=== PATIENT | female | born 1975 | race African-American/Black ===

== ENCOUNTER 2024-01-30 14:40 | Inpatient (IN) | payer MEDICAID ==
[~2024-01-30] VITALS: Ht 162.6 cm; Wt 168.8 kg
[~2024-01-30 14:40] MED LIST: INSUINJ37 SC; SEMA2INJ3 SC
--- NOTE | 2024-01-30 15:27 | ED.PDOC ---
SOB-HPI HPI Comments 48-year-old female presents with a chief complaint of SOB, fatigue, and cough. Patient states that she feels "miserable". Patient mentions that she has known sick contacts at home with similar symptoms. Patient was sating at 87% on room air and had to be placed on 2L via NC and is now sating at 92%. Patient does not normally use supplemental oxygen. Patient was febrile at home she states, but is afebrile in triage. No other symptoms or modifying factors present at this time. Chief Complaint: Shortness of Breath Time Seen by MD: 15:00 Primary Care Provider: MALACHI Reviewed notes: Medications, Allergies Information Source: Patient Mode of Arrival: Ambulatory Severity: Moderate Timing: Days Duration: Since onset Context: At Rest PE Risk Factors: None Prehospital treatment: None Modifying Factors: Nothing Associated Signs and Symptoms: Cough, Nasal Congestion If cough with SOB: Non-Productive Past Medical History PAST MEDICAL HISTORY: High Lipids, HTN Surgical History: Denies all surgeries BIOLOGICAL AIDE History: No Pertinent BIOLOGICAL AIDE History Family History Family History: Unknown Social History Smoker: Non-Smoker Alcohol: Denies ETOH Use Drugs: Denies Drug Use Lives In: Home Constitutional: reports: fatigue; denies: chills, diaphoresis, fever, malaise, sweats, weakness, others EENTM: denies: blurred vision, double vision, ear bleeding, ear discharge, ear drainage, ear pain, ear ringing, eye pain, eye redness, hearing loss, mouth pain, mouth swelling, nasal discharge, nose bleeding, nose congestion, nose pain, photophobia, tearing, throat pain, throat swelling, voice changes, others Respiratory: reports: cough, shortness of breath; denies: hemoptysis, orthopnea, SOB at rest, SOB with excertion, stridor, wheezing, others Cardiovascular: denies: chest pain, dizzy spells, diaphoresis, Dyspnea on exertion, edema, irregular heart beat, left arm pain, lightheadedness, palpitations, PND, syncope, others Gastrointestinal: denies: abdomen distended, abdominal pain, blood streaked bowels, constipated, diarrhea, dysphagia, difficulty swallowing, hematemesis, melena, nausea, poor appetite, poor fluid intake, rectal bleeding, rectal pain, vomiting, others Genitourinary: denies: abnormal vagina bleeding, burning, dyspareunia, dysuria, flank pain, frequency, hematuria, incontinence, pain, , vagina discharge, urgency, others Neurological: denies: dizziness, fainting, headache, left sided numbness, left sided weakness, numbness, paresthesia, pre-existing deficit, right sided numbness, right sided weakness, seizure, speech problems, tingling, tremors, weakness, others Musculoskeletal: denies: back pain, gout, joint pain, joint swelling, muscle pain, muscle stiffness, neck pain, others Integumetry: denies: bruises, change in color, change in hair/nails, dryness, laceration, lesions, lumps, rash, wounds, others Allergic/Immunocompromised: denies: Difficulty Healing, Frequent Infections, Hives, Itching, others Hematologic/Lymphatic: denies: anemia, blood clots, easy bleeding, easy bruising, swollen glands, others Endocrine: denies: excessive hunger, excessive sweating, excessive thirst, excessive urination, flushing, intolerance to cold, intolerance to heat, unexplained weight gain, unexplained weight loss, others Psychiatric: denies: anxiety, bipolar disorder, depression, hopeless, panic disorder, schizophrenia, sleepless, suicidal, others All Other Systems: Reviewed and Negative Physical Exam General Appearance: No Apparent Distress, Normal HEENT: Normal ENT Inspection, Pharynx Normal, TMs Normal Neck: Full Range of Motion, Non-Tender, Normal, Normal Inspection Respiratory: Chest Non-Tender, Lungs Clear, No Accessory Muscle Use, No Respiratory Distress, Normal Breath Sounds Cardiovascular: No Edema, No JVD, No Murmur, No Gallop, Normal Peripheral Pulses, Regular Rate/Rhythm Breast Exam: Deferred Gastrointestinal: No Organomegaly, Non Tender, No Pulsatile Mass, Normal Bowel Sounds, Soft Genitalia: Deferred Pelvic: Deferred Rectal: Deferred Extremities: No calf tenderness, Normal capillary refill, Normal inspection, Normal range of motion, Non-tender, No pedal edema Musculoskeletal : Apperance: Normal Neurologic: Alert, natural resource economist II-XII nml as Tested, No Motor Deficits, Normal Affect, Normal Mood, No Sensory Deficits Cerebellar Function: Normal Reflexes: Normal Skin: Dry, Normal Color, Warm Lymphatic: No Adenopathy Was a procedure done? Was a procedure done?: No Differential Dx Differential Diagnosis: Asthma, Cardiogenic Shock, CHF, COPD, Hypertension, Hyperventilation, Myocardial infarction, Pneumonia, Sinusitis, Pharyngitis X-Ray, Labs, Meds, VS Vital Signs Date Time Temp Pulse Resp B/P (MAP) Pulse Ox O2 Delivery O2 Flow Rate FiO2 01/30/24 15:45 24 94 Nasal Cannula* 4 36 01/30/24 15:14 136 19 01/30/24 15:14 100.1 136 19 125/64 (84) 93 100.1 01/30/24 14:56 139 01/30/24 14:56 97.9 142 22 132/60 (84) 93 Lab Test 01/30/24 15:50 Range/Units White Blood Count 23.5 H 4.4-10.8 10^3/uL Red Blood Count 4.84 4.0-5.20 10^6/uL Hemoglobin 14.7 12.2-16.2 g/dL Hematocrit 43.9 36.0-46.0 % Mean Corpuscular Volume 90.7 80.0-100.0 fL Mean Corpuscular Hemoglobin 30.3 28.0-32.0 pg Mean Corpuscular Hemoglobin Concent 33.4 32.0-36.0 g/dL Red Cell Distribution Width 14.3 11.8-14.3 % Platelet Count 248 140-450 10^3/uL Mean Platelet Volume 9.2 6.9-10.8 fL Neutrophils (%) (Auto) 86.5 H 37.0-80.0 % Lymphocytes (%) (Auto) 7.5 L 10.0-50.0 % Monocytes (%) (Auto) 5.7 0.0-12.0 % Eosinophils (%) (Auto) 0.0 0.0-7.0 % Basophils (%) (Auto) 0.3 0.0-2.0 % Neutrophils # (Auto) 20.3 H 1.6-8.6 10 ^3/uL Lymphocytes # (Auto) 1.8 0.4-5.4 10 ^3/uL Monocytes # (Auto) 1.3 0-1.3 10 ^3/uL Eosinophils # (Auto) 0 0-0.8 10 ^3/uL Basophils # (Auto) 0.1 0-0.2 10 ^3/uL Nucleated Red Blood Cells 0.1 % Sodium Level 135 L 136-145 mmol/L Potassium Level 3.5 3.5-5.1 mmol/L Chloride Level 103 98-107 mmol/L Carbon Dioxide Level 22 20-31 mmol/L Anion Gap 10 5-15 Blood Urea Nitrogen 8 L 9-23 mg/dL Creatinine 0.97 0.550-1.02 mg/dL Glomerular Filtration Rate Calc 73 >90 mL/min BUN/Creatinine Ratio 8.2 L 10.0-20.0 Serum Glucose 359 H 74-106 mg/dL Lactic Acid Level 2.6 *H 0.4-2.0 mmol/L Calcium Level 9.8 8.7-10.4 mg/dL Troponin I High Sensitivity 8 </=34 ng/L Current Medications Medications (Trade) Dose Ordered Sig/Anneliese Route Start Time Stop Time Status Last Admin Sodium Chloride 1,000 ml @ 1,000 mls/hr Q1H ONCE IV 01/30/24 15:15 01/30/24 16:14 DC 01/30/24 16:42 Ondansetron HCl (Zofran) 4 mg ONCE ONCE IV 01/30/24 15:15 01/30/24 15:16 DC 01/30/24 16:45 Albuterol (Ventolin Medneb) 5 mg ONCE ONCE NEB 01/30/24 15:15 01/30/24 15:16 DC 01/30/24 15:44 Ipratropium [place] (Atrovent Medneb) 0.5 mg ONCE ONCE NEB 01/30/24 15:15 01/30/24 15:16 DC 01/30/24 15:45 Acetaminophen (Tylenol Tablet) 650 mg ONCE ONCE PO 01/30/24 15:15 01/30/24 15:16 DC 01/30/24 16:45 Time of 1ST Reevaluation: 15:30 Reevaluation 1ST: Unchanged Patient Education/Counseling: Diagnosis, Treatment, Prognosis Family Education/Counseling: No Family Present Departure 1 Departure Time of Disposition: 17:12 (Patient presented acutely ill concern for sepsis secondary to pneumonia. Did not do the full fluid bolus since patient appears clinically volume overloaded. Patient has a pneumonia on x-ray that I ind ependently reviewed. Patient's labs are concerning for infection. Empirically covering patient with antibiotics and we will admit patient for further workup given patient's new oxygen requirement) Impression: Primary Impression: Acute hypoxic respiratory failure Additional Impressions: Pneumonia Qualified Codes: J18.9 - Pneumonia, unspecified organism Sepsis Qualified Codes: A41.9 - Sepsis, unspecified organism; R65.20 - Severe sepsis without septic shock; J96.01 - Acute respiratory failure with hypoxia Disposition: 09 ADMITTED INPATIENT Admit to: Med Surg Condition: Serious Critical Care Note Critical Care Time?: Yes Critical care comment: Acute hypoxic respiratory failure, possible sepsis Authorized and Performed by: Ashley Batista MD Total critical care time: Approximately 38 minutes Due to a high probability of clinically significant, life threatening deterioration, the patient required my highest level of preparedness to intervene emergently and I personally spent this critical care time directly and personally managing the patient. This critical care time included obtaining a history; examining the patient; pulse oximetry; ordering and review of studies; arranging urgent treatment with development of a management plan; evaluation of patient's response to treatment; frequent reassessment; and, discussions with other providers. This critical care time was performed to assess and manage the high probability of imminent, life-threatening deterioration that could result in multi-organ failure. It was exclusive of separately billable procedures and treating other patients and teaching time. Please see my other sections and the rest of the note for further information on patient assessment and treatment. Stability Stability form required: No Heart Score Heart Score: Heart Score Response (Comments) Value History N/A 0 EKG N/A 0 Age N/A 0 Risk Factors N/A 0 Troponin N/A 0 Total 0 I personally scribed for ASHLEY BATISTA MD ([email or web address]) on 01/30/24 at 15:27. Electronically submitted by Stew Snyder ([email or web address]). ASHLEY BATISTA MD Jan 30, 2024 15:27
[2024-01-30] MEDS: ALBUTEROL SULF 2.5 MG/0.5ML(0.5%) NEB SOLN NEB ONE (15:44)
[2024-01-30] MEDS: IPRATROPIUM BROM 0.5 MG/2.5ML INH SOL NEB ONE (15:45)
--- NOTE | 2024-01-30 15:48 | DVH ---
CHEST RADIOGRAPH Indication: sob Technique: Single frontal view of the chest was obtained Comparison: None FINDINGS: Lines and Tubes: None Lungs: Diffuse interstitial prominence with obscuration of the left hemidiaphragm. No pneumothorax. Cardiomediastinal contours: Mild cardiomegaly Bones: No acute osseous abnormality. IMPRESSION: Mild cardiomegaly with findings suggestive of congestive heart failure. Obscuration of the left hemidiaphragm which may be from overlying cardiac silhouette with underlying effusion / atelectasis / pneumonia not excluded.
[2024-01-30 16:07] LABS: Basophils # (auto) 0.1 10 ^3/uL (0-0.2); Basophils % (auto) 0.3 % (0.0-2.0); Eosinophils # (auto) 0 10 ^3/uL (0-0.8); Hematocrit 43.9 % (36.0-46.0); Hemoglobin 14.7 g/dL (12.2-16.2); Lymphocytes # (auto) 1.8 10 ^3/uL (0.4-5.4); Lymphocytes % (auto) 7.5 % (10.0-50.0); Mean Corpuscular Hemoglobin 30.3 pg (28.0-32.0); Mean Corpuscular Hgb Conc. 33.4 g/dL (32.0-36.0); Mean Corpuscular Volume 90.7 fL (80.0-100.0); Monocytes # (auto) 1.3 10 ^3/uL (0-1.3); Monocytes % (auto) 5.7 % (0.0-12.0); Neutrophils # (auto) 20.3 10 ^3/uL (1.6-8.6); Neutrophils % (auto) 86.5 % (37.0-80.0); Nucleated Red Blood Cells % 0.1 %; Platelet Count (auto) 248 10^3/uL (140-450); Red Blood Cells 4.84 10^6/uL (4.0-5.20); Red Cell Distribution Width 14.3 % (11.8-14.3); White Blood Cell 23.5 10^3/uL (4.4-10.8)
[2024-01-30 16:13] LABS: Chloride 103 mmol/L (98-107); Potassium 3.5 mmol/L (3.5-5.1); Sodium 135 mmol/L (136-145)
[2024-01-30 16:14] LABS: Anion Gap 10 (5-15); Carbon Dioxide 22 mmol/L (20-31)
[2024-01-30 16:15] LABS: Calcium 9.8 mg/dL (8.7-10.4)
[2024-01-30 16:19] LABS: BUN/Creatinine Ratio 8.2 (10.0-20.0); Blood Urea Nitrogen 8 mg/dL (9-23); Glucose 359 mg/dL (74-106)
[2024-01-30 16:26] LABS: Lactic Acid w/Reflex 2.6 mmol/L (0.4-2.0)
[2024-01-30 16:40] VITALS: PULSE 134; RESP 19; O2SAT 94
[2024-01-30] MEDS: SODIUM CHLORIDE 0.9% 1,000 ML IV ONE (16:42)
[2024-01-30] MEDS: ACETAMINOPHEN 325 MG TAB PO ONE (16:45)
[2024-01-30] MEDS: ONDANSETRON HCL 4 MG/2 ML VIAL IV ONE (16:45)
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
--- NOTE | 2024-01-30 18:31 | ECG ---
[facility] Test Date: 2024-01-30 Test Time: 14:56:05 Pat Name: VAL AGUILAR Department: ER Room: 0246T Gender: F Counter Attendant: CAROLIN : 1975 Requested By: ASHLEY NICK Order Number: [id number] Reading MD: Constantin Golden Measurements Intervals [place] Rate: 139 P: 59 ND: 124 QRS: -10 QRSD: 107 T: -39 QT: 306 QTc: 466 Interpretive Statements Sinus tachycardia Consider anterior infarct Borderline T abnormalities, inferior leads Baseline wander in lead(s) III,aVF Electronically Signed On 01-31-2024 14:17:28 PST by Constantin Golden Please click the below link to view image of tracing.
[2024-01-30] MEDS ORDERED: DOCUSATE SOD 100 MG CAP PO PRN (18:45)
[2024-01-30] MEDS ORDERED: HYDROcodone-ACET 5/325MG TAB PO PRN (18:45)
[2024-01-30] MEDS ORDERED: DEXTROSE (50%) 50ML SYRG IV PRN (18:45)
[2024-01-30] MEDS ORDERED: VANCOMYCIN PER PHARMACY 0 MG IV SCH (18:45)
[2024-01-30] MEDS ORDERED: MORPHINE SULFATE INJ 2 MG/ml SYRG IV PRN (18:45)
[2024-01-30] MEDS ORDERED: ONDANSETRON HCL 4 MG/2 ML VIAL IV PRN (18:45)
[2024-01-30] MEDS ORDERED: ACETAMINOPHEN 500 MG TAB PO PRN (19:00)
[2024-01-30] MEDS ORDERED: CHOL20002 PO (19:38)
[2024-01-30] MEDS ORDERED: ATOR20TA50 PO (19:38)
[2024-01-30] MEDS: ACCU-CHEK COMFORT CURVE STRIP VI SCH (21:14)
[2024-01-30] MEDS: methylPREDNISolone SOD SUCC 40 MG/ML VL IV ONE (21:14)
[2024-01-30] MEDS: AZITHROMYCIN 250 MG TAB PO ONE (21:14)
[2024-01-30] MEDS: InsuLIN REG 1unit/0.01ml Soln (100units/ml) SC SCH (21:15)
[2024-01-30] MEDS: VANCOMYCIN 1GM/200ML PREMIX 200 ML IV ONE (21:16)
--- NOTE | 2024-01-30 21:27 | DVH ---
Exam: CT CT AB PEL WO CON-NO ORAL OR IV History: abdominal pain Comparison Study: None available at time of dictation. TECHNIQUE: Multidetector CT of the abdomen and pelvis without contrast. Axial, coronal and sagittal m ultiplanar reformats were obtained from the axial data set by the technologist. Radiation Dose Information: CT Dose: CTDI volume is 25.34 mGy. Dose-length product is 2825.2 mGy*cm FINDINGS: Left lower lobe opacification. Minimal right basilar opacification with right basilar pleural thicken ing. Mild cardiomegaly. Mild hepatomegaly. Otherwise, liver, spleen, gallbladder, pancreas and adrenal glands unremarkable. Kidneys, ureters and urinary bladder unremarkable. Intrauterine device is noted in place. Stomach is unremarkable. Small bowel loops unremarkable. Appendix is unremarkable. Mild rectal wall thickening which is most likely due to inadequate distention. Otherwise, large bowel is unremarkable . No evidence of intraperitoneal free air or free fluid. No evidence of aortic aneurysm. No significant lymphadenopathy. The soft tissues unremarkable. No destructive osseous lesions are noted. Motion artifact limits evalu ation for left fractures. IMPRESSION: Left lower lobe pneumonia with right basilar atelectasis and pleural thickening. Mild hepatomegaly. Mild rectal wall thickening which is most likely due to inadequate distention with proctitis not excl uded.
[2024-01-31] VITALS (8 sets, daily range): BP systolic 95–122; BP diastolic 40–65; PULSE 96–116; RESP 16–28; TEMP 97.3–100.2; O2SAT 91–94
[2024-01-31] MEDS: VANCOMYCIN 1GM/200ML PREMIX 200 ML IV ONE (00:30)
[2024-01-31] MEDS: CEFEPIME 1GM/ 50ML 50 ML IV SCH ×2 (01:00→12:01)
[2024-01-31] MEDS ORDERED: METF-370 PO (05:40)
[2024-01-31 07:02] LABS: Basophils # (auto) 0 10 ^3/uL (0-0.2); Basophils % (auto) 0.1 % (0.0-2.0); Eosinophils # (auto) 0 10 ^3/uL (0-0.8); Hematocrit 41.8 % (36.0-46.0); Hemoglobin 13.9 g/dL (12.2-16.2); Lymphocytes # (auto) 1.6 10 ^3/uL (0.4-5.4); Lymphocytes % (auto) 7.3 % (10.0-50.0); Mean Corpuscular Hemoglobin 30.5 pg (28.0-32.0); Mean Corpuscular Hgb Conc. 33.3 g/dL (32.0-36.0); Mean Corpuscular Volume 91.7 fL (80.0-100.0); Monocytes # (auto) 0.8 10 ^3/uL (0-1.3); Monocytes % (auto) 3.7 % (0.0-12.0); Neutrophils # (auto) 19.2 10 ^3/uL (1.6-8.6); Neutrophils % (auto) 88.9 % (37.0-80.0); Nucleated Red Blood Cells % 0.1 %; Platelet Count (auto) 263 10^3/uL (140-450); Red Blood Cells 4.56 10^6/uL (4.0-5.20); Red Cell Distribution Width 14.6 % (11.8-14.3); White Blood Cell 21.6 10^3/uL (4.4-10.8)
[2024-01-31 07:10] LABS: Alanine Aminotransferase 32 U/L (7-40); Alkaline Phosphatase 113 U/L (46-116); Anion Gap 11 (5-15); BUN/Creatinine Ratio 8.6 (10.0-20.0); Blood Urea Nitrogen 8 mg/dL (9-23); Calcium 10.1 mg/dL (8.7-10.4); Carbon Dioxide 21 mmol/L (20-31); Chloride 106 mmol/L (98-107); Glucose 356 mg/dL (74-106); Potassium 3.7 mmol/L (3.5-5.1); Sodium 138 mmol/L (136-145)
[2024-01-31 07:12] LABS: Albumin 3.7 g/dL (3.2-4.8); Aspartate Aminotransferase 13 U/L (13-40)
[2024-01-31 07:13] LABS: Bilirubin, Total 0.5 mg/dL (0.2-1.0)
[2024-01-31] MEDS ORDERED: VANCOMYCIN 1GM/200ML PREMIX 200 ML IV SCH (09:15)
[2024-01-31] MEDS: VANCOMYCIN 1GM/200ML PREMIX 200 ML IV SCH (10:48)
[2024-01-31] MEDS: MULTIPLE VITAMIN TAB PO SCH (10:48)
[2024-01-31] MEDS: methylPREDNISolone SOD SUCC 40 MG/ML VL IV SCH (10:48)
[2024-01-31] MEDS: SODIUM CHLORIDE 0.9% 1,000 ML IV SCH (11:45)
--- NOTE | 2024-01-31 12:43 | CONS ---
Pharmacy Clinical Information: CQM HF Report. Patient is currently taking Atorvastatin 20mg PO daily at home. Consider resuming during hospitalization as patient qualifies for statin therapy at this time. Consideration of high vs moderate intensity stating could be done once more information/lab are obtained such as lipid panel. ADELINA MCCLAIN PHARMACIST Jan 31, 2024 12:43
--- NOTE | 2024-01-31 13:10 | DVHPN2 ---
Subjective Continue to complain of SOB Reviewed: Care Plan, H&P, Labs, Medications, Previous Orders, Radiology Changes from previous H/P or p: No Changes Objective Vitals Vital Signs Date Time Temp Pulse Resp B/P (MAP) Pulse Ox O2 Delivery O2 Flow Rate FiO2 01/31/24 12:52 97.8 99 17 101/45 (63) 91 97.8 01/31/24 08:00 Nasal Cannula* 4 36 Intake/Output Intake and Output 01/31/24 07:00 Intake Total 240 ml Balance 240 ml Intake Oral 240 ml # Voids 2 General Appearance: Alert, Oriented X3, Cooperative, mild distress, Other (Morbidly obese) HEENT: Atraumatic Lungs: Other (Decreased air entry bilateral) Cardiovascular: Regular rate, Normal S1, Normal S2 Abdomen: Normal bowel sounds, Soft, No tenderness Extremities: No edema Neuro: Normal speech, Cranial nerves 3-12 NL Psych/Mental Status: Mental status NL, Mood NL Medications Current Medications Medications Dose Ordered Sig/Anneliese Route Start Time Stop Time Status Last Admin Dose Admin Diagnostic Test (Pha) 1 strip IQ4HR 01/30/24 20:00 01/31/24 11:45 1 STRIP Insulin Human Regular IQ4HR SC 01/30/24 20:00 01/31/24 12:27 15 UNITS Dextrose 50 ml UD PRN IV 01/30/24 18:45 Methylprednisolone Sodium Succinate 40 mg DAILY IV 01/31/24 10:00 01/31/24 10:48 40 MG Vancomycin HCl 0 ml @ 0 mls/hr UD IV 01/30/24 18:45 Sodium Chloride 1,000 ml @ 60 mls/hr [id number] IV 01/30/24 18:45 01/31/24 11:45 60 MLS/HR Acetaminophen/ Hydrocodone Bitart 1 tab Q4HP PRN PO 01/30/24 18:45 Ondansetron HCl 4 mg Q4HP PRN IV 01/30/24 18:45 Docusate Sodium 100 mg BIDPRN PRN PO 01/30/24 18:45 Multivitamins 1 tab DAILY PO 01/31/24 10:00 01/31/24 10:48 1 TAB Acetaminophen 650 mg Q6HP PRN PO 01/30/24 18:45 Morphine Sulfate 2 mg Q4HPRN PRN IV 01/30/24 18:45 Cefepime HCl 50 ml @ 12.5 mls/hr Q8H IV 01/31/24 12:00 01/31/24 12:01 12.5 MLS/HR Vancomycin HCl 200 ml @ 200 mls/hr Q8H IV 01/31/24 11:00 01/31/24 10:48 200 MLS/HR Laboratory Results Laboratory Tests 01/31/24 06:07 Chemistry Test 01/30/24 15:50 01/31/24 06:07 Calcium Level 9.8 mg/dL (8.7-10.4) 10.1 mg/dL (8.7-10.4) Albumin 3.7 g/dL (3.2-4.8) Total Protein 7.0 g/dL (5.7-8.2) LFT Test 01/31/24 06:07 Alanine Aminotransferase (ALT) 32 U/L (7-40) Alkaline Phosphatase 113 U/L (46-116) Aspartate Amino Transferase (AST) 13 U/L (13-40) Total Bilirubin 0.5 mg/dL (0.2-1.0) HgA1c, TSH Test 01/30/24 15:50 Hemoglobin A1c 11.3 % A1C (<5.7) H Labs and/or images reviewed: Labs reviewed by me, Image(s) reviewed by me Assessment/Plan Assessment/Plan A 48-year-old female patient; with multiple comorbidities; who presented to the emergency department with SOB and fever. #Acute hypoxic respiratory failure due to community-acquired pneumonia; continue oxygen therapy as needed; reviewed the available imaging studies; reviewed blood work; continue monitoring #Sepsis due to community-acquired pneumonia with lactic acidosis, leukocytosis and fever; blood cultures pending; continue IV antibiotics; continue monitoring #Lactic acidosis and leukocytosis with fever due to sepsis; management as above; continue monitoring #Metabolic syndrome with severe morbid obesity, uncontrolled diabetes mellitus, and dyslipidemia; continue insulin sliding scale with hypoglycemia protocol; started Lantus and atorvastatin; counseled on the importance of adopting healthy lifestyle with diet and exercise in order to lose weight; continue monitoring #Anxiety and depression; no suicide ideation/plans; will resume psychiatric medication upon discharge home; continue monitoring Goals of care discussed for 20 minutes; full code This medical document was created using an electronic medical record system with computerized dictation system. Although this document has been carefully reviewed, there might still be some phonetic and typographical errors. These areas are purely typographical due to imperfections of the software programs, and do not reflect any compromise in the patient's medical care. Plan discussed with: Patient, Other (Nurse) My Orders Orders - MARKEL BROWN MD Procedure Category Date Status Time Prothrombin Time W/ LAB 01/31/24 Logged INR 10:23 Date of Service: Jan 31, 2024 Billing Provider: MARKEL BROWN MD Common Visit Codes: [id number] INP/OBS CARE(HIGH) Secondary Visit Codes: [id number] CARE PLAN 30 MINUTES (20 minutes) MARKEL BROWN MD Jan 31, 2024 13:10
[2024-01-31 14:11] LABS: INR 1.08 (0.9-1.15); Prothrombin Time 11.4 sec (9.3-11.8)
[2024-01-31] MEDS: ACETAMINOPHEN 325 MG TAB PO PRN (22:47)
[2024-01-31 23:12] LABS: Urine Bacteria None Seen /hpf (None Seen)
[2024-01-31 23:18] LABS: Urine Blood Negative /uL (Negative); Urine Clarity Clear (Clear); Urine Color Light-Yellow (Yellow); Urine Protein, UAD Negative (Negative); Urine Specific Gravity 1.037 (1.001-1.035); Urine Urobilinogen Normal (Negative); Urine WBC <1 /hpf (0 - 5)
[2024-01-31 23:39] LABS: Rapid Influenza A Negative (Negative); Rapid Influenza B Negative (Negative)
[2024-01-31 23:39] LABS: COVID19 ANTIGEN SOFIA FIA NEGATIVE (NEGATIVE)
[2024-02-01 01:00] VITALS: BP 107/50; PULSE 81; RESP 16; TEMP 98; O2SAT 97
[2024-02-01 05:00] VITALS: BP 104/46; PULSE 86; RESP 18; TEMP 97.7; O2SAT 96
[2024-02-01 06:30] VITALS: BP 129/66; PULSE 95; RESP 18; TEMP 98; O2SAT 93
[2024-02-01 06:30] LABS: Basophils # (auto) 0 10 ^3/uL (0-0.2); Eosinophils # (auto) 0 10 ^3/uL (0-0.8); Hematocrit 38.7 % (36.0-46.0); Hemoglobin 12.8 g/dL (12.2-16.2); Lymphocytes # (auto) 1.6 10 ^3/uL (0.4-5.4); Lymphocytes % (auto) 7.2 % (10.0-50.0); Mean Corpuscular Hemoglobin 30.1 pg (28.0-32.0); Monocytes % (auto) 4.7 % (0.0-12.0); Neutrophils # (auto) 19.1 10 ^3/uL (1.6-8.6); Neutrophils % (auto) 88.1 % (37.0-80.0); Nucleated Red Blood Cells % 0.1 %; Platelet Count (auto) 294 10^3/uL (140-450); Red Blood Cells 4.25 10^6/uL (4.0-5.20); Red Cell Distribution Width 14.4 % (11.8-14.3); White Blood Cell 21.7 10^3/uL (4.4-10.8)
[2024-02-01 06:48] LABS: Alanine Aminotransferase 24 U/L (7-40); Albumin 3.5 g/dL (3.2-4.8); Alkaline Phosphatase 98 U/L (46-116); Anion Gap 11 (5-15); BUN/Creatinine Ratio 18.1 (10.0-20.0); Blood Urea Nitrogen 13 mg/dL (9-23); Carbon Dioxide 22 mmol/L (20-31); Chloride 106 mmol/L (98-107); Magnesium 2.3 mg/dL (1.6-2.6); Potassium 4.2 mmol/L (3.5-5.1); Sodium 139 mmol/L (136-145)
[2024-02-01 06:49] LABS: Total Protein 6.7 g/dL (5.7-8.2)
[2024-02-01 06:51] LABS: Aspartate Aminotransferase 12 U/L (13-40); Glucose 346 mg/dL (74-106)
[2024-02-01 06:52] LABS: Bilirubin, Total 0.3 mg/dL (0.2-1.0)
[2024-02-01] MEDS: INSULIN LANTUS (GLARGINE) 1 /0.01ml (100units/ml) SC SCH ×2 (07:01→22:44)
[2024-02-01 08:00] VITALS: PULSE 94
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
[2024-02-01] MEDS: VANCOMYCIN 1.5GM/300ML 300 ML IV SCH (18:32)
[2024-02-01 20:00] VITALS: PULSE 92
[2024-02-01 21:00] VITALS: BP 125/67; PULSE 87; RESP 19; TEMP 98; O2SAT 96
[2024-02-01] MEDS: ATORVASTATIN 20 MG TAB PO SCH (22:37)
[2024-02-02] VITALS (8 sets, daily range): BP systolic 112–125; BP diastolic 53–66; PULSE 76–96; RESP 18–20; TEMP 97.8–98.6; O2SAT 94–98
[2024-02-02 06:23] LABS: Basophils # (auto) 0 10 ^3/uL (0-0.2); Basophils % (auto) 0.2 % (0.0-2.0); Eosinophils # (auto) 0 10 ^3/uL (0-0.8); Hematocrit 39.2 % (36.0-46.0); Hemoglobin 12.9 g/dL (12.2-16.2); Lymphocytes # (auto) 2.2 10 ^3/uL (0.4-5.4); Lymphocytes % (auto) 12.8 % (10.0-50.0); Mean Corpuscular Hemoglobin 29.9 pg (28.0-32.0); Mean Corpuscular Hgb Conc. 32.9 g/dL (32.0-36.0); Monocytes # (auto) 1.1 10 ^3/uL (0-1.3); Monocytes % (auto) 6.5 % (0.0-12.0); Neutrophils # (auto) 14.2 10 ^3/uL (1.6-8.6); Neutrophils % (auto) 80.5 % (37.0-80.0); Nucleated Red Blood Cells % 0.2 %; Platelet Count (auto) 297 10^3/uL (140-450); Red Blood Cells 4.31 10^6/uL (4.0-5.20); Red Cell Distribution Width 14.2 % (11.8-14.3); White Blood Cell 17.6 10^3/uL (4.4-10.8)
[2024-02-02 06:36] LABS: Chloride 106 mmol/L (98-107); Potassium 3.5 mmol/L (3.5-5.1); Sodium 140 mmol/L (136-145)
[2024-02-02 06:37] LABS: Anion Gap 10 (5-15); Calcium 9.8 mg/dL (8.7-10.4); Carbon Dioxide 24 mmol/L (20-31)
[2024-02-02 06:42] LABS: BUN/Creatinine Ratio 19.1 (10.0-20.0); Blood Urea Nitrogen 13 mg/dL (9-23)
[2024-02-02 06:48] LABS: Glucose 292 mg/dL (74-106)
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
[2024-02-03 05:00] VITALS: BP 118/55; PULSE 81; RESP 20; TEMP 98.1; O2SAT 94
[2024-02-03 06:27] LABS: Basophils # (auto) 0 10 ^3/uL (0-0.2); Basophils % (auto) 0.2 % (0.0-2.0); Eosinophils # (auto) 0 10 ^3/uL (0-0.8); Eosinophils % (auto) 0.2 % (0.0-7.0); Hematocrit 40.8 % (36.0-46.0); Hemoglobin 13.3 g/dL (12.2-16.2); Lymphocytes # (auto) 3.7 10 ^3/uL (0.4-5.4); Lymphocytes % (auto) 21.8 % (10.0-50.0); Mean Corpuscular Hemoglobin 29.5 pg (28.0-32.0); Mean Corpuscular Hgb Conc. 32.6 g/dL (32.0-36.0); Mean Corpuscular Volume 90.5 fL (80.0-100.0); Monocytes # (auto) 1.5 10 ^3/uL (0-1.3); Monocytes % (auto) 8.7 % (0.0-12.0); Neutrophils # (auto) 11.6 10 ^3/uL (1.6-8.6); Neutrophils % (auto) 69.1 % (37.0-80.0); Nucleated Red Blood Cells % 0.2 %; Platelet Count (auto) 303 10^3/uL (140-450); Red Blood Cells 4.51 10^6/uL (4.0-5.20); Red Cell Distribution Width 14.3 % (11.8-14.3); White Blood Cell 16.8 10^3/uL (4.4-10.8)
[2024-02-03 06:43] LABS: Sodium 142 mmol/L (136-145)
[2024-02-03 06:44] LABS: Anion Gap 11 (5-15); Calcium 9.7 mg/dL (8.7-10.4); Carbon Dioxide 23 mmol/L (20-31)
[2024-02-03 06:49] LABS: BUN/Creatinine Ratio 17.9 (10.0-20.0); Blood Urea Nitrogen 12 mg/dL (9-23)
[2024-02-03 06:57] LABS: Chloride 108 mmol/L (98-107); Glucose 183 mg/dL (74-106); Potassium 3.2 mmol/L (3.5-5.1)
[2024-02-03 08:00] VITALS: PULSE 80
[2024-02-03 09:00] VITALS: BP 131/61; PULSE 86; RESP 20; TEMP 98.8; O2SAT 95
[2024-02-03 13:00] VITALS: BP 136/69; PULSE 82; RESP 21; TEMP 97.9; O2SAT 95
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
[2024-02-03] MEDS: POTASSIUM EFFERVESENT TAB 25 MEQ PO ONE (13:30)
[2024-02-03 17:00] VITALS: BP 121/82; PULSE 100; RESP 21; TEMP 97.7; O2SAT 93
[2024-02-03 20:00] VITALS: PULSE 97
[2024-02-04] VITALS (9 sets, daily range): BP systolic 111–128; BP diastolic 56–81; PULSE 57–98; RESP 17–22; TEMP 97.3–98.8; O2SAT 92–98
[2024-02-04 06:55] LABS: Basophils # (auto) 0.2 10 ^3/uL (0-0.2); Eosinophils # (auto) 0.2 10 ^3/uL (0-0.8); Eosinophils % (auto) 1.1 % (0.0-7.0); Hemoglobin 13.1 g/dL (12.2-16.2); Lymphocytes # (auto) 4.1 10 ^3/uL (0.4-5.4); Lymphocytes % (auto) 26.6 % (10.0-50.0); Mean Corpuscular Hemoglobin 29.5 pg (28.0-32.0); Mean Corpuscular Hgb Conc. 32.7 g/dL (32.0-36.0); Mean Corpuscular Volume 90.2 fL (80.0-100.0); Monocytes # (auto) 1.2 10 ^3/uL (0-1.3); Monocytes % (auto) 7.5 % (0.0-12.0); Neutrophils # (auto) 9.8 10 ^3/uL (1.6-8.6); Neutrophils % (auto) 63.8 % (37.0-80.0); Platelet Count (auto) 309 10^3/uL (140-450); Red Blood Cells 4.44 10^6/uL (4.0-5.20); Red Cell Distribution Width 14.4 % (11.8-14.3); White Blood Cell 15.4 10^3/uL (4.4-10.8)
[2024-02-04 07:12] LABS: Anion Gap 8 (5-15); Carbon Dioxide 27 mmol/L (20-31); Chloride 106 mmol/L (98-107); Sodium 141 mmol/L (136-145)
[2024-02-04 07:13] LABS: Calcium 9.8 mg/dL (8.7-10.4)
[2024-02-04 07:18] LABS: BUN/Creatinine Ratio 18.6 (10.0-20.0); Blood Urea Nitrogen 11 mg/dL (9-23)
[2024-02-04 07:35] LABS: Potassium 3.4 mmol/L (3.5-5.1)
[2024-02-04 07:36] LABS: Glucose 167 mg/dL (74-106)
[2024-02-04] MEDS: VANCOMYCIN 1 GM/200 ML IV SCH (17:20)
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
[2024-02-04] MEDS: POTASSIUM CHL 20 Meq TABLET PO ONE (19:15)
[2024-02-05] VITALS (8 sets, daily range): BP systolic 100–130; BP diastolic 48–63; PULSE 78–110; RESP 20–21; TEMP 97.6–98.8; O2SAT 94–98
[2024-02-05 08:07] LABS: Basophils # (auto) 0 10 ^3/uL (0-0.2); Basophils % (auto) 0.1 % (0.0-2.0); Eosinophils # (auto) 0.2 10 ^3/uL (0-0.8); Eosinophils % (auto) 1.5 % (0.0-7.0); Hematocrit 40.1 % (36.0-46.0); Hemoglobin 12.8 g/dL (12.2-16.2); Lymphocytes # (auto) 4.4 10 ^3/uL (0.4-5.4); Lymphocytes % (auto) 28.4 % (10.0-50.0); Mean Corpuscular Hemoglobin 29.5 pg (28.0-32.0); Mean Corpuscular Hgb Conc. 31.8 g/dL (32.0-36.0); Mean Corpuscular Volume 92.7 fL (80.0-100.0); Monocytes # (auto) 1.2 10 ^3/uL (0-1.3); Monocytes % (auto) 7.9 % (0.0-12.0); Neutrophils # (auto) 9.7 10 ^3/uL (1.6-8.6); Neutrophils % (auto) 62.1 % (37.0-80.0); Nucleated Red Blood Cells % 0.1 %; Platelet Count (auto) 352 10^3/uL (140-450); Red Blood Cells 4.32 10^6/uL (4.0-5.20); Red Cell Distribution Width 14.6 % (11.8-14.3); White Blood Cell 15.6 10^3/uL (4.4-10.8)
[2024-02-05 08:38] LABS: Anion Gap 8 (5-15); Carbon Dioxide 24 mmol/L (20-31); Potassium 3.8 mmol/L (3.5-5.1); Sodium 140 mmol/L (136-145)
[2024-02-05 08:44] LABS: BUN/Creatinine Ratio 14.5 (10.0-20.0)
[2024-02-05 08:45] LABS: Magnesium 2.1 mg/dL (1.6-2.6)
[2024-02-05 08:53] LABS: Blood Urea Nitrogen 9 mg/dL (9-23); Chloride 108 mmol/L (98-107); Glucose 110 mg/dL (74-106)
--- NOTE | 2024-02-05 12:43 | DVHPN2 ---
Subjective Patient reports having shortness of breath with mild activity. Reviewed: Care Plan, H&P, Labs, Medications, Previous Orders, Radiology Changes from previous H/P or p: No Changes General: Per HPI Objective Vitals Vital Signs Date Time Temp Pulse Resp B/P (MAP) Pulse Ox O2 Delivery O2 Flow Rate FiO2 02/05/24 09:00 98.4 84 20 105/55 (72) 95 98.4 02/05/24 08:00 Nasal Cannula* 3 32 Intake/Output Intake and Output 02/05/24 07:00 Intake Total 2741 ml Output Total 1 ml Balance 2740 ml Intake Oral 1391 ml IV Total 1350 ml Stool Total 1 ml # Voids 10 # Bowel Movements 1 General Appearance: Alert, Oriented X3, Cooperative, No acute distress, Other (Morbidly obese) HEENT: Atraumatic Lungs: Other (Decreased air entry bilateral) Cardiovascular: Regular rate, Normal S1, Normal S2 Abdomen: Normal bowel sounds, Soft, No tenderness Extremities: No edema Neuro: Normal speech, Cranial nerves 3-12 NL Psych/Mental Status: Mental status NL, Mood NL Medications Current Medications Medications Dose Ordered Sig/Anneliese Route Start Time Stop Time Status Last Admin Dose Admin Diagnostic Test (Pha) 1 strip IQ4HR 01/30/24 20:00 02/05/24 08:13 1 STRIP Insulin Human Regular IQ4HR SC 01/30/24 20:00 02/05/24 08:13 2 UNITS Dextrose 50 ml UD PRN IV 01/30/24 18:45 Vancomycin HCl 0 ml @ 0 mls/hr UD IV 01/30/24 18:45 Acetaminophen/ Hydrocodone Bitart 1 tab Q4HP PRN PO 01/30/24 18:45 Ondansetron HCl 4 mg Q4HP PRN IV 01/30/24 18:45 Docusate Sodium 100 mg BIDPRN PRN PO 01/30/24 18:45 Multivitamins 1 tab DAILY PO 01/31/24 10:00 02/05/24 10:00 1 TAB Acetaminophen 650 mg Q6HP PRN PO 01/30/24 18:45 01/31/24 22:47 650 MG Morphine Sulfate 2 mg Q4HPRN PRN IV 01/30/24 18:45 Cefepime HCl 50 ml @ 12.5 mls/hr Q8H IV 01/31/24 12:00 02/05/24 11:00 12.5 MLS/HR Atorvastatin Calcium 40 mg HS PO 02/01/24 22:00 02/04/24 20:50 40 MG Insulin Glargine 40 units BID SC 02/01/24 22:00 02/05/24 10:12 40 UNITS Vancomycin HCl 400 ml @ 200 mls/hr Q10H IV 02/04/24 18:00 02/05/24 04:26 200 MLS/HR Laboratory Results Laboratory Tests 02/05/24 07:24 Chemistry Test 02/05/24 07:24 Calcium Level 10.0 mg/dL (8.7-10.4) Magnesium Level 2.1 mg/dL (1.6-2.6) Urinalysis Test 01/31/24 23:10 Urine Color Light-yellow (Yellow) Urine Clarity Clear (Clear) Urine pH 6.0 (5.0-9.0) Urine Specific [place] 1.037 (1.001-1.035) Urine Protein Negative (Negative) Urine Ketones 2+ (Negative) H Urine Blood Negative /uL (Negative) Urine Nitrite Negative (Negative) Urine Bilirubin Negative (Negative) Urine Urobilinogen Normal mg/dL (Negative) Urine Leukocyte Esterase Negative /uL (Negative) Urine RBC 1 /hpf (0 - 4) Urine WBC <1 /hpf (0 - 5) Urine Squamous Epithelial Cells Few /hpf (<5) Urine Bacteria None seen /hpf (None Seen) Urine Glucose 4+ mg/dL (Normal) H Microbiology Microbiology Date/Time Source Procedure Growth Status 01/30/24 18:19 Blood Blood Culture - Final NO GROWTH AFTER 5 DAYS OF INCUBATION. Complete Labs and/or images reviewed: Labs reviewed by me, Image(s) reviewed by me Assessment/Plan Assessment/Plan Impression: -acute hypoxic respiratory failure -community-acquired pneumonia, probable Gram-positive/Gram-negative etiology -diabetes mellitus -primary hypertension -morbid obesity -leukocytosis, rule out sepsis -history of traumatic brain injury -anxiety, depression Plan: -repeat chest x-ray -weaned off of O2 -continue IV antibiotic therapy -out of bed as tolerated -regular insulin sliding scale -DC planning for tomorrow Total time spent with patient discussing and formulating plan of care: 35 minutes. This medical document was created using an electronic medical record system with [employer] system. Although this document has been carefully reviewed, there may still be some phonetic and typographical errors. These areas are purely typographical due to imperfections of the software programs, and do not reflect any compromise in the patient's medical care. Plan discussed with: Patient, Other (RN) My Orders Orders - CARON TAYLOR NP Procedure Category Date Status Time Chest Xray 1 View XY 02/05/24 Logged 11:00 Date of Service: Feb 05, 2024 Billing Provider: CARON TAYLOR NP Common Visit Codes: [id number] INP/OBS CARE(HIGH) CARON TAYLOR NP Feb 05, 2024 12:43
--- NOTE | 2024-02-05 13:12 | DVH ---
CHEST RADIOGRAPH Indication: pna Technique: Single frontal view of the chest was obtained COMPARISON: XY CHEST PORTABLE on DOS: 01/30/24 FINDINGS: Lines and Tubes: None Lungs: Mild congestion Pleura: No effusion. No pneumothorax. Cardiomediastinal contours: Cardiomegaly Bones: Unremarkable IMPRESSION: Cardiomegaly. Mild congestion, slightly improved.
[2024-02-05] MEDS: CEFEPIME 2GM/50ML NS 50 ML IV ONE (15:42)
[2024-02-06 01:00] VITALS: BP 100/44; PULSE 82; RESP 20; TEMP 98.3; O2SAT 98
[2024-02-06 05:00] VITALS: BP 107/66; PULSE 85; RESP 21; TEMP 97.9; O2SAT 98
[2024-02-06 07:03] LABS: Basophils # (auto) 0 10 ^3/uL (0-0.2); Basophils % (auto) 0.2 % (0.0-2.0); Eosinophils # (auto) 0.1 10 ^3/uL (0-0.8); Hematocrit 40.7 % (36.0-46.0); Hemoglobin 13.3 g/dL (12.2-16.2); Lymphocytes # (auto) 4.4 10 ^3/uL (0.4-5.4); Lymphocytes % (auto) 30.7 % (10.0-50.0); Mean Corpuscular Hemoglobin 29.7 pg (28.0-32.0); Mean Corpuscular Hgb Conc. 32.7 g/dL (32.0-36.0); Mean Corpuscular Volume 90.9 fL (80.0-100.0); Monocytes # (auto) 1.1 10 ^3/uL (0-1.3); Monocytes % (auto) 7.6 % (0.0-12.0); Neutrophils # (auto) 8.6 10 ^3/uL (1.6-8.6); Neutrophils % (auto) 60.5 % (37.0-80.0); Nucleated Red Blood Cells % 0.2 %; Platelet Count (auto) 370 10^3/uL (140-450); Red Blood Cells 4.48 10^6/uL (4.0-5.20); Red Cell Distribution Width 14.3 % (11.8-14.3); White Blood Cell 14.3 10^3/uL (4.4-10.8)
[2024-02-06 08:00] VITALS: PULSE 72; PULSE 85; RESP 17; O2SAT 96
[2024-02-06 09:00] VITALS: BP 109/52; PULSE 72; RESP 17; TEMP 98.1; O2SAT 96
[2024-02-06] MEDS ORDERED: CEFD300C2 PO (11:13)
[2024-02-06 13:00] VITALS: BP 117/56; PULSE 106; RESP 19; TEMP 98.6; O2SAT 93
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
[2024-02-06 17:00] VITALS: BP 123/61; PULSE 103; RESP 17; TEMP 99.2; O2SAT 95
== END 2024-02-06 19:36 | disposition home or self-care (01) | DRG 720 ==
LOC: ER 14:40 → TELE 18:43 → TELE-EAST 23:33
PROVIDERS: ATTEND Nurse Practitioner Acute Care
DX: A41.59 Other Gram-negative sepsis (principal); J96.01 Acute respiratory failure with hypoxia; E87.20 Acidosis, unspecified; J15.69 Pneumonia due to other Gram-negative bacteria; I13.0 Hypertensive heart and chronic kidney disease with heart failure and stage 1 through stage 4 chronic kidney disease, or unspecified chronic kidney disease; J15.9 Unspecified bacterial pneumonia; I50.9 Heart failure, unspecified; E11.22 Type 2 diabetes mellitus with diabetic chronic kidney disease; E11.65 Type 2 diabetes mellitus with hyperglycemia; E66.01 Morbid (severe) obesity due to excess calories; E78.5 Hyperlipidemia, unspecified; N18.9 Chronic kidney disease, unspecified; F32.A Depression, unspecified; F41.9 Anxiety disorder, unspecified; E88.810 Metabolic syndrome; Z68.44 Body mass index [BMI] 60.0-69.9, adult; Z87.820 Personal history of traumatic brain injury; Z79.899 Other long term (current) drug therapy
CPT/HCPCS: 36415; 71045; 74176; 80048; 80053; 80202; 81001; 82565; 82962; 83036; 83605; 83735; 84484; 85025; 85610; 87040; 87426; 87804; 93005; 94640; 96365; 96375; 97110; 97163; 97530; 99291; G0378; J1815; J2405